=== PATIENT | female | born 1995 | race African-American/Black ===

== ENCOUNTER 2021-12-21 10:13 | Emergency (ER) | payer MEDICAID ==
[~2021-12-21] VITALS: Ht 167.6 cm; Wt 82.0 kg
[2021-12-21] MEDS ORDERED: ACETAMINOPHEN 325MG TABLET PO STA ×2 (10:43→11:10)
[2021-12-21] MEDS ORDERED: TETANUS, DIPHTHERIA, PERTUSSIS VAC/PF 0.5ML (>10YR OLD) IM ONE (10:45)
[2021-12-21] MEDS ORDERED: IBUPROFEN 600MG TABLET PO STA (11:10)
[2021-12-21 11:25] VITALS: BP 168/137
[2021-12-21] MEDS ORDERED: ACET-2708 MT (12:21)
[2021-12-21] MEDS ORDERED: BO1 TP (12:21)
[2021-12-21] MEDS ORDERED: IBUP-2028 MT (12:21)
== END 2021-12-21 13:34 | disposition home or self-care (01) ==
LOC: ER 10:13
DX: S20.219A Contusion of unspecified front wall of thorax, initial encounter (principal); S50.11XA Contusion of right forearm, initial encounter; R51.9 Headache, unspecified; V86.19XA Passenger of other special all-terrain or other off-road motor vehicle injured in traffic accident, initial encounter; Y93.89 Activity, other specified; Y92.410 Unspecified street and highway as the place of occurrence of the external cause
CPT/HCPCS: 71045; 73090; 99284